=== PATIENT | female | born 1935 | race Caucasian/White ===

== ENCOUNTER 2021-07-16 00:18 | Day surgery (SDC) | payer MEDICARE, SELFPAY ==
[2021-07-04 15:11] VITALS: BMI 28.0
[2021-07-16 08:54] VITALS: BP 108/84; PULSE 60; RESP 16; TEMP 36; O2SAT 94
[2021-07-16] MEDS: LACTATED RINGERS 1,000 ML 150 ML IV CONT (08:58)
--- NOTE | 2021-07-16 09:31 | WPDGICN ---
Assessment and Plan Assessment and plan (1) Dysphagia: Code(s): R13.10 - Dysphagia, unspecified Status: Acute Assessment and Plan: patient with difficulty swallowing suspicious for esophageal narrowing. Plan is for EGD to evaluate. Suspect she may have esophageal web requiring dilatation. Further recommendations will be given after endoscopy. (2) Heartburn: Code(s): R12 - Heartburn Status: Acute Assessment and Plan: Patient has frequent heartburn for which she takes Tums occasionally. Plan of evaluated time of EGD. She may need long-term acid suppression. GI Consult Note Consult date/time: 07/16/21 09:31 HPI: Evelyne Santos is a 86 year old female Presents for EGD. Patient reports over the last 1 year that she will have difficulty swallowing bread and meat. She states this food will hang up in the midportion of the chest. She points towards her throat. She denies any weight loss or bleeding. She does have a long history of heartburn several times a weeks for which she takes Tums. Patient denies any chest or abdominal pain otherwise. She she has never had previous endoscopy. Review of Systems Review of Systems: All systems reviewed & are unremarkable except as noted in HPI and below PMFSH Family History Family History Father Heart disease Mother Hypertension Grandparent Hypertension Grandparent Heart disease Social History Social History Smoking packs per day: 0.5 Smoking cigarettes per day: 10.0 Smoking status: Former smoker Tobacco type: cigarettes Alcohol intake: current Drinks per week: 5 Substance use: never Substance use type: does not use Living arrangements: with family Spiritual care concerns: No Meds Home Medications and Allergies Home Medications Medication Instructions Recorded Confirmed Type aspirin 81 mg tablet,delayed 81 mg PO DAILY 10/26/19 07/16/21 History release calcium carbonate 600 mg calcium 600 mg PO DAILY 10/26/19 07/16/21 History (1,500 mg) tablet losartan 100 mg tablet 100 mg PO DAILY 10/26/19 07/16/21 History metoprolol succinate 50 mg 50 mg PO DAILY 10/26/19 07/16/21 History tablet,extended release 24 hr rosuvastatin 5 mg sprinkle capsule 5 mg PO DAILY 10/26/19 07/16/21 History Allergies Allergy/AdvReac Type Severity Reaction Status Date / Time azithromycin Allergy Mild Rash Verified 07/16/21 08:53 Penicillins Allergy Unknown Unknown Verified 07/16/21 08:53 benazepril Allergy Itching Verified 07/16/21 08:53 diclofenac Allergy Unknown Verified 07/16/21 08:53 Vital Signs Vital Signs - 24 hr 07/16/21 08:54 Temperature 96.8 F L Pulse Rate 60 Respiratory Rate 16 Blood Pressure 108/84 Pulse Oximetry 94 Exam Narrative: Physical exam reveals patient to be alert. Vital signs stable. HEENT exam is unremarkable. Patient is anicteric. Lungs are clear to auscultation and percussion. Heart is without murmur or extra sounds. Abdomen bowel sounds are present soft nontender with no hepatosplenomegaly.
--- NOTE | 2021-07-16 09:58 | P.PNAN_ITS ---
Anes - Initial Pre Proc Eval Procedure: Operation Date: 07/16/21 10:00 Proposed Procedures p Esophagogastroduodenoscopy - Jero Rodas MD Date/Time: 07/16/21 09:58 Surgeon: Jero Rodas MD Pre Op Diagnosis: dysphagia Patient Data Age: 86 Gender: F Height: 1.65 m Weight: 78 kg Last Vital Signs Temp 96.8 F L 07/16/21 08:54 Pulse 60 07/16/21 08:54 Resp 16 07/16/21 08:54 BP 108/84 07/16/21 08:54 Pulse Ox 94 07/16/21 08:54 Allergies Allergy/AdvReac Type Severity Reaction Status Date / Time azithromycin Allergy Mild Rash Verified 07/16/21 08:53 Penicillins Allergy Unknown Unknown Verified 07/16/21 08:53 benazepril Allergy Itching Verified 07/16/21 08:53 diclofenac Allergy Unknown Verified 07/16/21 08:53 Home Medications Medication Instructions Recorded Confirmed Type aspirin 81 mg tablet,delayed 81 mg PO DAILY 10/26/19 07/16/21 History release calcium carbonate 600 mg calcium 600 mg PO DAILY 10/26/19 07/16/21 History (1,500 mg) tablet losartan 100 mg tablet 100 mg PO DAILY 10/26/19 07/16/21 History metoprolol succinate 50 mg 50 mg PO DAILY 10/26/19 07/16/21 History tablet,extended release 24 hr rosuvastatin 5 mg sprinkle capsule 5 mg PO DAILY 10/26/19 07/16/21 History Patient hx anesthesia problems: none Family hx anesthesia problems: none Results Review: All pre-operative results and documents have been reviewed as part of the pre-operative evaluation. [facility] Family History Family History Father Heart disease Mother Hypertension Grandparent Hypertension Grandparent Heart disease Social History Social History Smoking packs per day: 0.5 Smoking cigarettes per day: 10.0 Smoking status: Former smoker Tobacco type: cigarettes Alcohol intake: current Drinks per week: 5 Substance use: never Substance use type: does not use Living arrangements: with family Spiritual care concerns: No Anes - Eval Final PreProcedure Day of Procedure 07/16/21 09:58 Patient weight: obese Heart: regular rate and rhythm Lungs: clear to auscultation Airway: Mallampati scale class II Neurological: alert and oriented Last oral intake: >/= 8 hours ASA classification: III Emergent: no Anesthetic plan: proceed Anesthesia type and monitoring: general GIVS and standard monitoring Results Review: All pre-operative results and documents have been reviewed as part of the pre-operative evaluation. Informed Consent: The patient's anesthetic plan and its attendant risks and benefits were discussed with the patient/family/POA. Questions were solicited and answers provided to the satisfaction of the patient/family/POA.
[2021-07-16] MEDS: BENZOCAINE (*SP) 60 ML SPRAY CAN (HURRICAINE) 1 SPRAY MUCOUS MEM (10:33)
[2021-07-16 10:44] VITALS: BP 129/62; PULSE 58; RESP 20; O2SAT 100
[2021-07-16 10:54] VITALS: BP 101/62; PULSE 56; RESP 20; O2SAT 99
[2021-07-16 11:04] VITALS: BP 138/69; PULSE 55; RESP 14; O2SAT 98
== END 2021-07-16 11:12 | disposition home or self-care (01) ==
PROVIDERS: PCP Family Medicine; Visit Provider Internal Medicine Gastroenterology
PROC: 0DJ08ZZ Inspection of Upper Intestinal Tract, Via Natural or Artificial Opening Endoscopic (ICD-10-PCS; CPT 43235; principal; 2021-07-16 10:00)
DX: R13.19 Other dysphagia (principal); K21.00 Gastro-esophageal reflux disease with esophagitis, without bleeding; Q39.4 Esophageal web; R12 Heartburn; Z79.82 Long term (current) use of aspirin; Z87.891 Personal history of nicotine dependence
CPT/HCPCS: 43450; 43235; J2704; J7120